=== PATIENT | male | born 1965 | race Caucasian/White ===

== ENCOUNTER 2021-05-09 09:25 | Emergency (ER) | payer SELFPAY ==
[~2021-05-09] VITALS: Ht 160 cm; Wt 77.1 kg
[2021-05-09 09:32] VITALS: BP 174/97
--- NOTE | 2021-05-09 09:37 | NUR ---
PT AMBULATED TO ER BED 4 WITH A STEADY GAIT.
--- NOTE | 2021-05-09 09:54 | NUR ---
56 Y/O MALE REFERRED HERE BY CLINIC FOR BLOOD SUGAR READING OF 470. BS 387 UPON ARRIVAL TO ED AT TRIAGE. PT STATES HE TOOK RX FOR DM THIS MORNING PRIOR TO ARRIVAL AND "SOME TEA". DENIES PAIN, DENIES N/V, DENIES DIZZINESS/SYNCOPE, DENIES FEVER/CHILLS. PMH: ALLA MELENDEZ
--- NOTE | 2021-05-09 10:23 | NUR ---
IV STARTED TO RIGHT FA, UNABLE TO OBTAIN LABS, FLUSHES WITH NO INFILTRATION NOTED. [employer]ISH [employer] CHAIR MADE AWARE, AWARE.
[2021-05-09] MEDS: NACL 0.9% 1,000 ML IV ONE (10:59)
--- NOTE | 2021-05-09 11:31 | NUR ---
LAB AT [facility] FOR BLOOD DRAW.
[2021-05-09 11:41] LABS: BASOPHILS % (AUTO) 0.5 % (0.0-2.0); EOSINOPHILS # (AUTO) 0.1 K/uL (0-0.4); EOSINOPHILS % (AUTO) 1.2 % (0.0-4.0); HEMATOCRIT 36.8 % (36-52); HEMOGLOBIN 12.8 g/dL (12.0-18.0); LYMPHOCYTES # (AUTO) 1.4 K/uL (2.0-11.5); LYMPHOCYTES % (AUTO) 20.3 % (20.5-51.1); MEAN CORPUSCULAR HEMOGLOBIN 32 pg (27-31); MEAN CORPUSCULAR HGB CONC 35 g/dL (33-37); MEAN CORPUSCULAR VOLUME 93.3 fL (80-94); MONOCYTES # (AUTO) 0.5 K/uL (0.8-1.0); MONOCYTES % (AUTO) 7.9 % (1.7-9.3); NEUTROPHILS # (AUTO) 4.7 K/uL (1.8-7.7); NEUTROPHILS % (AUTO) 70.1 % (42.2-75.2); PLATELET COUNT (AUTO) 205 K/uL (140-450); RED BLOOD CELL COUNT(AUTO) 3.94 MIL/uL (4.20-6.10); RED CELL DISTRIBUTION WIDTH 13.3 % (11.6-13.7); WHITE BLOOD COUNT (AUTO) 6.7 K/uL (4.8-10.8)
--- NOTE | 2021-05-09 12:29 | NUR ---
PT SLEEPING, VISIBLE EQUAL RISE AND FALL OF CHEST, WILL CONTINUE TO MONITOR.
[2021-05-09 12:31] LABS: ALBUMIN 3.5 g/dL (3.4-5.0); ANION GAP 13.9 (8-16); CARBON DIOXIDE 24.6 mmol/L (21-32); CREATININE 0.9 mg/dL (0.6-1.3); POTASSIUM 4.5 mmol/L (3.5-5.1); TOTAL BILIRUBIN 0.3 mg/dL (0.0-1.0)
--- NOTE | 2021-05-09 12:45 | NUR ---
DR. SAWYER AT PT BEDSIDE FOR FURTHER EVALUATION.
[2021-05-09 13:46] VITALS: BP 180/97
--- NOTE | 2021-05-09 13:47 | NUR ---
Patient discharged with v/s stable. Written and verbal after care instructions given and explained HYPERGLYCEMIA . Patient verbalized understanding. Ambulatory with steady gait. All questions addressed prior to discharge. Advised to follow up with PMD.
== END 2021-05-09 13:47 | disposition home or self-care (01) ==
LOC: MED 09:25
DX: E11.65 Type 2 diabetes mellitus with hyperglycemia (principal)
CPT/HCPCS: 36415; 80053; 81002; 82948; 85025; 96360; 99283; J7030